=== PATIENT | female | born 1980 | race African-American/Black ===

== ENCOUNTER 2023-06-14 09:43 | Emergency (ER) | payer BC ==
[2023-06-14] VITALS (11 sets, daily range): BP systolic 128–169; BP diastolic 75–104
[~2023-06-14] VITALS: Ht 152.4 cm; Wt 97.5 kg
[2023-06-14] MEDS ORDERED: ALBUTEROL108 MCG/AC IN (10:10)
[2023-06-14 10:32] LABS: BASO% 0.5 % (0-3); EOS% 4.8 % (0-8); HEMATOCRIT 38.1 % (37.0-47.0); HEMOGLOBIN 11.8 g/dl (12.0-16.0); IMMATURE GRANULOCYTES 0.9 % (0.0-5.0); LYMPH% 38.2 % (15-41); MEAN CELL VOLUME 86.6 fL CALC (80.0-100.0); MEAN CORPUSCULAR HGB 26.8 pG CALC (26.0-32.0); MONO% 6.7 % (2-13); NEUT# 2.82 thou/uL (2.00-7.15); NEUT% 48.9 % (42-76); RED BLOOD COUNT 4.4 mill/uL (4.20-5.60); RED CELL DISTRI WIDTH 13.3 % (11.5-15.5)
[2023-06-14 10:45] LABS: ALBUMIN 4.4 g/dL (3.2-5.0); ALKALINE PHOSPHATASE 29 u/l (38-126); BILIRUBIN, TOTAL 0.8 mg/dL (0.02-1.3); BUN 5 mg/dL (7-17); BUN/CREATININE RATIO 8 (12-20 (CALC)); CARBON DIOXIDE 28 mmol/l (22-30); CHLORIDE 101 mmol/l (95-108); CREATININE 0.6 mg/dL (0.5-1.0); GFR FOR AFR.AMER. > 60 ML/MIN (>=60 (CALC)); GFR OTHER RACES > 60 ML/MIN (>=60 (CALC)); SGOT/AST 48 u/l (14-36); SODIUM 138 mmol/l (137-146); TOTAL PROTEIN 8.3 g/dL (6.3-8.2)
[2023-06-14 10:46] LABS: ANION GAP 15 (6-22 (CALC))
[2023-06-14 10:47] LABS: POTASSIUM 5.6 mmol/l (3.5-5.1)
[2023-06-14 11:41] LABS: URINE BILIRUBIN - DIPSTICK Negative (NEGATIVE); URINE BLOOD DIPSTICK Negative (NEGATIVE); URINE GLUCOSE - DIPSTICK Negative (NEGATIVE); URINE KETONE Negative (NEGATIVE); URINE LEUK ESTERASE Negative (NEGATIVE); URINE NITRITE - DIPSTICK Negative (Negative); URINE PROTEIN - DIPSTICK Negative (NEG-TRACE); URINE SPECIFIC GRAVITY 1.015; URINE UROBILINOGEN - DIPSTICK 0.2 E.U./dL (0.2)
[2023-06-14 11:45] LABS: URINE COLOR Yellow
[2023-06-14] MEDS ORDERED: FLUCONAZOLE200 MG PO (12:33)
== END 2023-06-14 12:47 | disposition home or self-care (01) | DRG 159 ==
LOC: ED 09:43
PROVIDERS: Family Medicine
DX: B37.0 Candidal stomatitis (principal); R51.9 Headache, unspecified
CPT/HCPCS: Q9967